=== PATIENT | male | born 1990 | race Two or more races ===

== ENCOUNTER 2017-01-10 08:34 | Day surgery (SDC) | payer OTHER ==
[2017-01-07 10:17] VITALS: BMI 23.4
[2017-01-10] MEDS ORDERED: MIDAZOLAM HCL 2 MG/2 ML SINGLE DOSE VIAL ONE (10:23)
[2017-01-10] MEDS ORDERED: PROPOFOL 20 ML ONE (10:23)
[2017-01-10] MEDS ORDERED: LEVOFLOXACIN 500 MG PREMIX BAG IVPB ONE (10:56)
[2017-01-10] MEDS ORDERED: BUPIVACAINE HCL/PF 0.5% (5MG/ML) 10 ML VIAL IJ ONE (11:11)
[2017-01-10] MEDS ORDERED: ONDANSETRON 4 MG/2 ML VIAL IVPUSH PRN (11:58)
[2017-01-10] MEDS ORDERED: KETOROLAC TROMETHAMINE 30 MG/1 ML VIAL IVPUSH ONE (11:58)
[2017-01-10] MEDS ORDERED: PROMETHAZINE HCL 25 MG/1 ML VIAL IVPUSH PRN (11:58)
[2017-01-10] MEDS ORDERED: oxyCODONE HCL 5 MG TABLET PO PRN (11:58)
[2017-01-10] MEDS ORDERED: LACTATED RINGERS SOLUTION 1,000 ML IV SCH (12:00)
--- NOTE | 2017-01-10 12:09 | OP ---
Operative Note - Note: Operative Date: 01/10/17 Pre-Operative Diagnosis: left varicocele Operation: left varicocelectomy Findings: left varicocele Post-Operative Diagnosis: Same as Pre-op Surgeon: Bear Gutierrez Anesthesia: General
[2017-01-10] MEDS ORDERED: KETOROLAC TROMETHAMINE 30 MG/1 ML VIAL ONE (12:31)
[2017-01-10 12:39] VITALS: TEMP 97.5
[2017-01-10 14:32] VITALS: BP 110/55; PULSE 65
--- NOTE | 2017-01-10 19:40 | OP ---
DATE OF OPERATION: 01/10/2017 PREOPERATIVE DIAGNOSIS: Left varicocele. POSTOPERATIVE DIAGNOSIS: Left varicocele. PROCEDURE: Left varicocelectomy. ATTENDING: Bear Killian MD ANESTHESIA: General. DESCRIPTION OF OPERATION: The patient was brought in the operating room, placed in supine position on the operating room table. The patient had been examined prior to the operation, and the left varicocele was noted and discussed with the patient. The patient understands the risks and benefits of the left varicocelectomy. General anesthesia and preoperative antibiotics were administered. An incision was made over the left external inguinal ring. Sharp and blunt dissection was taken to the level of the spermatic cord. The spermatic cord was brought to the surface. The artery of the vas and the vas deferens identified and isolated from the varicocele. With the varicocele isolated, clamps were taken proximally and distally, and a segment of the varicocele was sent for analysis to the pathology department. A suture ligature is placed on both stumps. A second free tie is placed over the varicocele segments. Excellent hemostasis was obtained. A 2-layer closure is performed. Marcaine is administered for postoperative anastomosis. No complications were noted. The patient tolerated the procedure very well. Pascual [id number]
--- NOTE | 2017-01-11 16:32 | PATH ---
Surgical Pathology Report Patient Name: BAO TRIPATHI [facility]. Rec. #: [id number] /Age/Gender: 1990 (Age: 26) / M Account: [id number] Location: [facility] SURGICAL Taken: 01/10/2017 Received: 01/10/2017 Reported: 01/11/2017 Physicians: Bear Gutierrez Specimen(s) Received LEFT VARICOCELE PACKET Clinical History Left varicocele Final Diagnosis VARICOCELE PACKET, LEFT, EXCISION: FIBROMEMBRANOUS AND FIBROVASCULAR TISSUE. Electronically Signed Nafisa Smallwood M.D. Gross Description Received in formalin labeled "left varicocele packet," is a 1.4 x 1.1 x 0.4 cm gallegos lópez, irregular portion of soft tissue with minimal attached fat. The specimen is bisected and entirely submitted in one cassette. 01/10/201701/10/2017
== END 2017-01-10 14:20 | disposition home or self-care (01) ==
LOC: JASU-SURG 08:34
PROVIDERS: ATTEND Urology
PROC: 0VBG0ZZ Excision of Left Spermatic Cord, Open Approach (ICD-10-PCS; principal; 2017-01-10 10:00)
DX: I86.1 Scrotal varices (principal)
CPT/HCPCS: 88304-TC; 94760